=== PATIENT | female | born 1950 | race Caucasian/White ===

== ENCOUNTER 2022-03-09 23:35 | Emergency (ER) | payer MEDICAID ==
[~2022-03-09] VITALS: Ht 147.3 cm; Wt 73.0 kg
[2022-03-10] MEDS ORDERED: ACETAMINOPHEN 325MG TABLET PO STA (01:13)
[2022-03-10] MEDS ORDERED: ONDANSETRON 4MG ODT PO ONE (01:15)
[2022-03-10 03:27] LABS: BASOPHILS % 0.4 % (0.0-2.0); HEMATOCRIT. 37.4 % (36.0-48.0); HEMOGLOBIN. 12.5 g/dL (12.0-16.0); LYMPHOCYTES % 34.1 % (20.0-50.0); MEAN CORPUSCULAR HEMOGLOBIN 30.6 pg (28.0-32.0); MEAN CORPUSCULAR VOLUME 91.4 fL (81.0-99.0); MONOCYTES % 7.5 % (2.0-8.0); PLATELET 256 x1000/uL (130-400); RED BLOOD CELL COUNT 4.09 mill/uL (4.2-5.4); RED CELL DISTRIBUTION WIDTH 12.3 % (11.6-14.6)
[2022-03-10 03:29] LABS: CLARITY URINE CLEAR (CLEAR); COLOR URINE YELLOW (YELLOW); KETONES URINE NEGATIVE (NEGATIVE); LEUKOCYTE ESTERASE URINE 1+ (NEGATIVE); NITRITE URINE NEGATIVE (NEGATIVE); OCCULT BLOOD URINE NEGATIVE (NEGATIVE); PH URINE 5.5 (4.5-8.0); PROTEIN URINE NEGATIVE (NEGATIVE); SPECIFIC GRAVITY URINE 1.011 (1.005-1.030); UROBILINOGEN URINE 0.2 E.U./dL (0.2-1.0)
[2022-03-10 03:43] LABS: CHLORIDE 102 mEq/L (98-107)
[2022-03-10 03:49] LABS: BETA HYDROXYBUTYRATE 0.1 mMol/L (0.0-0.3)
[2022-03-10] MEDS ORDERED: ACET-2708 MT (04:56)
[2022-03-10] MEDS ORDERED: CEPH500C2 MT (04:57)
[2022-03-10 05:10] VITALS: BP 160/58
== END 2022-03-10 05:12 | disposition home or self-care (01) ==
LOC: ER 23:35
DX: K80.20 Calculus of gallbladder without cholecystitis without obstruction (principal); E11.65 Type 2 diabetes mellitus with hyperglycemia; N39.0 Urinary tract infection, site not specified; Z98.890 Other specified postprocedural states
CPT/HCPCS: 36415; 76705; 80053; 81003; 82010; 82962; 83690; 85025; 99284; Q0162

== ENCOUNTER 2022-04-26 19:29 | Emergency (ER) | payer MEDICAID, OTHER ==
[~2022-04-26] VITALS: Ht 144.8 cm; Wt 70.9 kg
[~2022-04-26 19:29] MED LIST: ACET-2708 MT; CEPH500C2 MT
[2022-04-26 22:29] LABS: CLARITY URINE CLEAR (CLEAR); COLOR URINE YELLOW (YELLOW); KETONES URINE NEGATIVE (NEGATIVE); LEUKOCYTE ESTERASE URINE NEGATIVE (NEGATIVE); NITRITE URINE NEGATIVE (NEGATIVE); OCCULT BLOOD URINE NEGATIVE (NEGATIVE); PROTEIN URINE NEGATIVE (NEGATIVE); SPECIFIC GRAVITY URINE 1.024 (1.005-1.030); UROBILINOGEN URINE 0.2 E.U./dL (0.2-1.0)
[2022-04-26 23:40] LABS: BASOPHILS % 0.2 % (0.0-2.0); EOSINOPHILS % 1.4 % (0.0-5.0); HEMATOCRIT. 38.6 % (36.0-48.0); HEMOGLOBIN. 12.9 g/dL (12.0-16.0); LYMPHOCYTES % 25.4 % (20.0-50.0); MEAN CORPUSCULAR HEMOGLOBIN 30.7 pg (28.0-32.0); MEAN CORPUSCULAR VOLUME 91.5 fL (81.0-99.0); MEAN PLATELET VOLUME 8.5 fl (7.4-10.4); MONOCYTES % 4.9 % (2.0-8.0); NEUTROPHILS % 68.1 % (40.0-76.0); PLATELET 277 x1000/uL (130-400); RED BLOOD CELL COUNT 4.21 mill/uL (4.2-5.4); RED CELL DISTRIBUTION WIDTH 12.7 % (11.6-14.6)
[2022-04-27 00:01] LABS: CHLORIDE 107 mEq/L (98-107)
[2022-04-27] MEDS ORDERED: OMEP20TA23 MT (00:54)
[2022-04-27 01:47] VITALS: BP 155/54
[2022-04-27] MEDS ORDERED: DICYCLOMINE HCL 10MG CAPSULE PO ONE (02:00)
[2022-04-27] MEDS ORDERED: ACETAMINOPHEN 325MG TABLET PO ONE (02:00)
== END 2022-04-27 02:30 | disposition home or self-care (01) ==
LOC: ER 19:29
DX: R10.13 Epigastric pain (principal); E11.65 Type 2 diabetes mellitus with hyperglycemia; I10 Essential (primary) hypertension; Z98.51 Tubal ligation status; Z87.11 Personal history of peptic ulcer disease
CPT/HCPCS: 36415; 76705; 80053; 81003; 85025; 93005; 99285